=== PATIENT | male | born 1975 | race Caucasian/White ===

== ENCOUNTER 2022-10-02 08:02 | Emergency (ER) | payer OTHER, SELFPAY ==
[2022-10-02 08:14] VITALS: BP 138/88; PULSE 85; RESP 16; TEMP 35.8; O2SAT 100
[2022-10-02 08:20] VITALS: BP 138/88; PULSE 85; RESP 16; TEMP 35.8; O2SAT 100
--- NOTE | 2022-10-02 08:30 | ED.GENADULT ---
HPI - General Adult General Chief complaint: Upper Respiratory Infection Stated complaint: swollen rt tonsil Source: patient Mode of arrival: ambulatory Limitations: no limitations History of Present Illness HPI narrative: Patient presents for evaluation of sore throat for the last 48 hours. He indicates his right tonsil looks and large. He had similar symptoms in the past was given antibiotics and steroids. He states that he did not have a peritonsillar abscess at that time. He did improved clinically with medication. he denies any fever, chills, nausea, vomiting, cough, nasal congestion or drainage. He does feel some pain in his right ear, only when he swallows. No recent sick contacts to his knowledge. No additional complaints or concerns. Related Data Allergies Allergy/AdvReac Type Severity Reaction Status Date / Time No Known Allergies Allergy Unverified 10/02/22 08:14 Review of Systems Review of Systems: CONSTITUTIONAL: Denies fever, chills, or sweats. EYES: Denies visual changes, redness, or discharge. ENT: Reports sore throat and right tonsillar enlargement. Reports pain in right ear only when he swallows. Denies nasal congestion or drainage. CARDIOVASCULAR: Denies chest pain, palpitations, or edema. RESPIRATORY: Denies cough or dyspnea. GASTROINTESTINAL: Denies abdominal pain, nausea, vomiting, or diarrhea. GENITOURINARY: Denies dysuria or hematuria. SKIN: Denies rash or itching. MUSCULOSKELETAL: Denies back pain, joint pain, or myalgia. NEUROLOGIC: Denies headache, numbness, dizziness, or weakness. PSYCHIATRIC: Denies anxiety or depression. [facility] Past Medical History Medical History Atrial fibrillation Surgical History Surgical History History of cardiac radiofrequency ablation History of shoulder surgery Family History Family History Mother Family history non-contributory Social History Social History Smoking status: Never smoker Substance use: never Gender identity (if verbalized by the patient): Male Spiritual care concerns: No Exam Narrative: GENERAL: Well-appearing, well-nourished, and in no acute distress. HEAD: Normocephalic, atraumatic. EYES: PERRLA and EOMI. ENT: Nares clear, no rhinorrhea or epistaxis. Mucous membranes moist. There is right tonsillar enlargement without uvular deviation. There is no significant posterior pharyngeal exudate.. Bilateral TMs pearly hedrick nonbulging NECK: Supple. No adenopathy or masses. No carotid bruits or JVD CHEST: Clear to auscultation. No respiratory distress. No wheezes rales or rhonchi HEART: Regular rate and rhythm. No murmur heard. Normal peripheral pulses. ABDOMEN: Soft, nontender, nondistended, normal active bowel sounds. EXTREMITIES: Normal range of motion. No edema. SKIN: Warm, dry, no rash. NEURO: No focal deficits. Alert and oriented x3. PSYCH: Normal mood and affect. Course Course Emergency Course: This is a 47-year-old male who presented for evaluation of sore throat and some enlargement of his right tonsil. There is mild enlargement noted. This does not appear to be an abscess. There is no uvular deviation. He has had similar symptoms in the past was successfully treated with prednisone and antibiotics. He was given Decadron while here and will discharge with amoxicillin and prednisone. His strep here was negative. He has been doing well monitoring himself at home. If he develops uvular deviation, worsening swelling, difficulty breathing/swallowing he should go immediately to the ER. Follow up with primary provider this week. Pt in agreement with plan of care Level of Care: Express Care Visit Vital Signs Vital signs: Vital Signs Temperature 35.8 C L 10/02/22 08:14 Pul
== END 2022-10-02 08:44 | disposition home or self-care (01) ==
PROVIDERS: Emergency Provider Nurse Practitioner
DX: J02.9 Acute pharyngitis, unspecified (principal); I48.91 Unspecified atrial fibrillation
CPT/HCPCS: 87081; 87880; 99213; G0463; J1100